=== PATIENT | female | born 1960 | race African-American/Black ===

== ENCOUNTER 2018-05-09 16:52 | Emergency (ER) | payer MEDICAID ==
[~2018-05-09] VITALS: Ht 172.7 cm; Wt 77.1 kg
[~2018-05-09 16:52] MED LIST: ALBUTEROL SULF8.5 GM INH; DULERA 100 MCG/13 GM INH; PRILOSEC40 MG ORAL; QVAR7.3 GM INH
[2018-05-09 17:00] VITALS: BP 144/104
--- NOTE | 2018-05-09 17:00 | NUR ---
ED Nurse Note: pt present at ER c/o chest pain 6/10 radiates to both shoulders and both arms. per pt she has been coughing for a couple of days but pt has coughed during assessment. pt aao x4 and skin intact and cooperative.
--- NOTE | 2018-05-09 17:30 | Emergency Room Report ---
History of Present Illness General Chief Complaint: General Complaint Source: Patient Present Illness HPI 57-year-old female with history of COPD p/w chest pain for 2-3 days. Chest pain started spontaneously.. Localized to left side of chest/ substernal area, no radiation to back or other areas, sharp in nature, gradual in onset, has multiple episodes episodes. Denies any worsened SOB than her normal, says that she has not been wheezing. No fever no chills no coughing.. Denies palpitations , diaphoresis. She said that she has also been nauseous and felt like it was indigestion so she took some Maalox without any relief. This is the first occurrence of chest pain. Denies fever, chills, cough, abd pain. Denies trauma. Patient has never had a stress test. Patient has never had a cardiac catheterization. Allergies: Coded Allergies: EGG (Unverified Allergy, Severe, 06/06/14) PEANUT (Unverified Allergy, Severe, 06/06/14) Patient History Past Medical History: see triage record Past Surgical History: none Pertinent Family History: none Now: No Reviewed Nursing Documentation: PMH: Agreed; PSxH: Agreed Nursing Documentation-PMH Past Medical History: No History, Except For Hx Hypertension: No - ARTHRITIS Hx COPD: Yes Hx Gastrointestinal Problems: Yes - H. PYLORI Review of Systems All Other Systems: negative except mentioned in HPI Physical Exam Vital Signs Date Time Temp Pulse Resp B/P (MAP) Pulse Ox O2 Delivery O2 Flow Rate FiO2 05/09/18 16:57 98.1 78 20 145/92 94 Room Air Sp02 EP Interpretation: reviewed, normal General Appearance: alert, GCS 15, non-toxic, mild distress Head: normocephalic, atraumatic Eyes: bilateral eye normal inspection, bilateral eye PERRL, bilateral eye EOMI ENT: normal ENT inspection, normal pharynx, normal voice, moist mucus membranes Neck: normal inspection, full range of motion, supple Respiratory: normal inspection, lungs clear, normal breath sounds, no respiratory distress, no retraction, no wheezing, speaking full sentences, chest symmetrical Cardiovascular #1: normal inspection, regular rate, rhythm, no edema, normal capillary refill Cardiovascular #2: 2+ radial (R), 2+ radial (L) Gastrointestinal: normal inspection, non tender, soft, non-distended, no guarding Musculoskeletal: normal inspection, back normal, normal range of motion, non- tender Neurologic: normal inspection, alert, oriented x3, responsive, motor strength/ tone normal, sensory intact, normal gait, speech normal Psychiatric: normal inspection, judgement/insight normal, memory normal Skin: normal inspection, normal color, no rash, warm/dry, well hydrated, normal turgor Medical Decision Making Diagnostic Impression: Primary Impression: Chest pain Additional Impressions: UTI (urinary tract infection) COPD exacerbation ER Course 57-year-old female p/w CP DDX: ACS vs. COPD, CHF vs. pneumonia vs. gastritis/GERD vs. pneumothorax PE on differential however at this time there are other more likely diagnoses. She has no risk factors Plan: IV access, obtain labs including troponin, EKG, CXR ASA ER course: Patient was treated with ASA. Patient has remained on a monitor, HD stable, chest pain improved. also given nebs, only minimal wheezing, ceftriaxone given for UTI Disposition: Patient noemí be dc home.. HEART score is 1 dc home with close pcp fu Please note that this Emergency Department Report was dictated using [employer] technology software, occasionally this can lead to erroneous entry secondary to interpretation by the dictation equipment. EKG Diagnostic Results EP Interpretation: Yes Rate: normal Rhythm: NSR ST Segments: T-wave inversion in aVL, T-wave flattening in V2 and V3 ASA given to patient: Yes Rhythm Strip EP Interpretation: Yes Rate: 70 Rhythm: NSR, no PVCs, no ectopy Chest X-ray CXR: Ordered: Yes 1 view Indication: Chest pain EP interpretation: Yes Interpretation: No consolidation, no effusion, no PTX, no acute cardiopulmonary disease Impression: No acute disease Electronically signed by Radha Estevez MD Laboratory Tests Test 05/09/18 17:35 05/09/18 19:57 White Blood Count 7.4 K/UL (4.8-10.8) Red Blood Count 5.00 M/UL (4.20-5.40) Hemoglobin 15.1 G/DL (12.0-16.0) Hematocrit 45.5 % (37.0-47.0) Mean Corpuscular Volume 91 FL (80-99) Mean Corpuscular Hemoglobin 30.2 PG (27.0-31.0) Mean Corpuscular Hemoglobin Concent 33.2 G/DL (32.0-36.0) Red Cell Distribution Width 11.9 % (11.6-14.8) Platelet Count 275 K/UL (150-450) Mean Platelet Volume 6.6 FL (6.5-10.1) Neutrophils (%) (Auto) 54.6 % (45.0-75.0) Lymphocytes (%) (Auto) 31.9 % (20.0-45.0) Monocytes (%) (Auto) 9.2 % (1.0-10.0) Eosinophils (%) (Auto) 2.5 % (0.0-3.0) Basophils (%) (Auto) 1.9 % (0.0-2.0) Urine Color Pale yellow Urine Appearance Clear Urine pH 8 (4.5-8.0) Urine Specific [place] 1.010 (1.005-1.035) Urine Protein Negative (NEGATIVE) Urine Glucose (UA) Negative (NEGATIVE) Urine Ketones Negative (NEGATIVE) Urine Blood Negative (NEGATIVE) Urine Nitrite Negative (NEGATIVE) Urine Bilirubin Negative (NEGATIVE) Urine Urobilinogen Normal MG/DL (0.0-1.0) Urine Leukocyte Esterase 1+ (NEGATIVE) H Urine RBC 0-2 /HPF (0 - 2) Urine WBC 0-2 /HPF (0 - 2) Urine Squamous Epithelial Cells Few /LPF (NONE/OCC) Urine Amorphous Sediment Moderate /LPF (NONE) H Urine Bacteria Moderate /HPF (NONE) H Sodium Level 140 MMOL/L (136-145) Potassium Level 4.1 MMOL/L (3.5-5.1) Chloride Level 103 MMOL/L (98-107) Carbon Dioxide Level 33 MMOL/L (21-32) H Anion Gap 4 mmol/L (5-15) L Blood Urea Nitrogen 10 mg/dL (7-18) Creatinine 1.0 MG/DL (0.55-1.30) Estimate Glomerular Filtration Rate > 60 mL/min (>60) Glucose Level 100 MG/DL (74-106) Calcium Level 9.7 MG/DL (8.5-10.1) Total Bilirubin 0.2 MG/DL (0.2-1.0) Aspartate Amino Transferase (AST) 15 U/L (15-37) Alanine Aminotransferase (ALT) 38 U/L (12-78) Alkaline Phosphatase 110 U/L (46-116) Troponin I 0.000 ng/mL (0.000-0.056) 0.000 ng/mL (0.000-0.056) Pro-B-Type Natriuretic Peptide 8 pg/mL (0-125) Total Protein 8.2 G/DL (6.4-8.2) Albumin 3.8 G/DL (3.4-5.0) Globulin 4.4 g/dL Albumin/Globulin Ratio 0.9 (1.0-2.7) L Last Vital Signs Date Time Temp Pulse Resp B/P (MAP) Pulse Ox O2 Delivery O2 Flow Rate FiO2 05/09/18 16:57 98.1 78 20 145/92 94 Room Air Disposition: HOME, SELF-CARE Condition: Stable Scripts Cephalexin* (KEFLEX*) 500 Mg Capsule 500 MG ORAL EVERY 6 HOURS for 7 Days, #28 CAP Prov: Radha Estevez M.D. 05/09/18 Prednisone* (PREDNISONE*) 20 Mg Tablet 40 MG ORAL DAILY for 5 Days, #10 TAB Prov: Radha Estevez M.D. 05/09/18 Radha Estevez M.D. May 09, 2018 17:30
[2018-05-09] MEDS ORDERED: Ipratropium 0.02% Inh Soln 2.5ml UD HHN ONE (17:45)
[2018-05-09] MEDS ORDERED: Albuterol ud Inhalation HHN ONE (17:45)
--- NOTE | 2018-05-09 17:46 | NUR ---
ED Nurse Note: RN notified that pt wants breathing tx and audiable wheezing. will wait for the order.
[2018-05-09 18:05] LABS: BASOPHILS % (AUTO) 1.9 % (0.0-2.0); EOSINOPHILS % (AUTO) 2.5 % (0.0-3.0); HEMATOCRIT 45.5 % (37.0-47.0); HEMOGLOBIN 15.1 G/DL (12.0-16.0); LYMPHOCYTES % (AUTO) 31.9 % (20.0-45.0); MEAN CORPUSCULAR VOLUME 91 FL (80-99); MONOCYTES % (AUTO) 9.2 % (1.0-10.0); NEUTROPHILS % (AUTO) 54.6 % (45.0-75.0); PLATELET COUNT 275 K/UL (150-450); RED CELL DISTRIBUTION WIDTH 11.9 % (11.6-14.8); WHITE BLOOD COUNT 7.4 K/UL (4.8-10.8)
[2018-05-09 18:06] LABS: APPEARANCE,URINE CLEAR; BILIRUBIN, URINE NEGATIVE (NEGATIVE); COLOR,URINE PALE YELLOW; GLUCOSE, URINE (UA) NEGATIVE (NEGATIVE); KETONES,URINE NEGATIVE (NEGATIVE); LEUKOCYTE ESTERASE ,URINE 1+ (NEGATIVE); NITRITE,URINE NEGATIVE (NEGATIVE); PH,URINE 8 (4.5-8.0); PROTEIN,URINE NEGATIVE (NEGATIVE); UROBILINOGEN,URINE NORMAL MG/DL (0.0-1.0)
[2018-05-09 18:13] LABS: ANION GAP 4 mmol/L (5-15); BLOOD UREA NITROGEN 10 mg/dL (7-18); CALCIUM 9.7 MG/DL (8.5-10.1); CARBON DIOXIDE 33 MMOL/L (21-32); CHLORIDE 103 MMOL/L (98-107); POTASSIUM 4.1 MMOL/L (3.5-5.1); SODIUM 140 MMOL/L (136-145)
[2018-05-09] MEDS ORDERED: Solu-MEDROL 125mg Inj IVP ONE (18:15)
[2018-05-09] MEDS ORDERED: PREDNISONE20 MG ORAL (18:16)
[2018-05-09 18:26] LABS: ALANINE AMINOTRANSFERASE 38 U/L (12-78); ALBUMIN 3.8 G/DL (3.4-5.0); ALBUMIN/GLOBULIN RATIO 0.9 (1.0-2.7); ALKALINE PHOSPHATASE 110 U/L (46-116); ASPARTATE AMINO TRANSFERASE 15 U/L (15-37); BILIRUBIN,TOTAL 0.2 MG/DL (0.2-1.0)
[2018-05-09] MEDS ORDERED: cefTRIAXone 1 GM in NS 55 ML IVPB ONE (18:45)
[2018-05-09] MEDS ORDERED: CEPHALEXIN500 MG ORAL (18:46)
--- NOTE | 2018-05-09 19:30 | NUR ---
ED Nurse Note: Patient resting comfortably with friend at bedside. awaiting redraw on troponin before discharge and conclusion of fluids.
--- NOTE | 2018-05-09 19:50 | NUR ---
ED Nurse Note: IV antibiotics complete, patient ambulated to restroom, with steady gait. Patient awaiting lab results of troponin redraw. Friend at bedside.
[2018-05-09 20:58] VITALS: BP 144/104
--- NOTE | 2018-05-09 20:58 | NUR ---
ED Nurse Note: patient cleared for discharge. Patient verbalized understanding of discharge instruction, IV removed, id band removed. patient departed with all belongings, accompanied by friend.
--- NOTE | 2018-05-10 10:54 | Diagnostic Imaging Report ---
Indication: Chest pain Comparison: 06/06/2014 A single view chest radiograph was obtained. Findings: There is a question of a nodular density at the left lung base injected over the posterior part of the left ninth rib. Further evaluation is recommended to exclude possibility of a pulmonary nodule. Heart size is normal. Aorta is mildly ectatic. IMPRESSION: Suggest repeat x-ray. Suggest PA and lateral view for questionable nodule left lung base versus artifact.
--- NOTE | 2018-05-12 13:06 | Cardiology Report ---
APPROVED REPORT EKG Measurement Heart [id number] Normal sinus rhythm Nonspecific ST and T wave abnormality Abnormal ECG
== END 2018-05-09 20:58 | disposition home or self-care (01) ==
LOC: EMR 17:57
DX: R07.9 Chest pain, unspecified (principal); N39.0 Urinary tract infection, site not specified; J44.1 Chronic obstructive pulmonary disease with (acute) exacerbation; Z91.012 Allergy to eggs; Z91.010 Allergy to peanuts
CPT/HCPCS: 36415; 71045; 80053; 81003; 83880; 84484; 85025; 87086; 93005; 94640; 94664; 96365; 96375; 99284; J0696; J2405; J2930; S0028

== ENCOUNTER 2018-10-13 18:08 | Emergency (ER) | payer MEDICAID ==
[~2018-10-13] VITALS: Ht 172.7 cm; Wt 77.1 kg
[~2018-10-13 18:08] MED LIST changes: +CEPHALEXIN500 MG ORAL; +GUAIFENESIN-CO118 M1 ORAL; +PREDNISONE20 MG ORAL
[2018-10-13 18:25] VITALS: BP 136/89
--- NOTE | 2018-10-13 18:25 | NUR ---
ED Nurse Note: PT FROM HOME CAME IND UE TO SOB AND COPD EXACERBATION X 4 DAYS. PT STATES IT GOT WORSE TODAY AND DENIES SMOKING. NOTED AUDIBLE WHEEZING AND SOB AT REST. AAO X4, AMBULATORY WITH LABORED BREATHING. VSS.
[2018-10-13] MEDS ORDERED: Solu-MEDROL 125mg Inj IVP ONE (18:30)
[2018-10-13] MEDS ORDERED: Ipratropium 0.02% Inh Soln 2.5ml UD HHN ONE (18:30)
--- NOTE | 2018-10-13 18:35 | Emergency Room Report ---
History of Present Illness General Chief Complaint: Dyspnea/Respdistress Source: Patient Present Illness HPI The patient drove herself here. She has had a cough for 3 to 4 days. She has also had wheezing. She denies any significant chest pain. She recently finished a course of steroids about a month ago. She does have a history of asthma and COPD. She has been coughing up some phlegm. She thinks she might have had some fevers but feels more like hot flashes. This is not her worst attack but she has been using her nebulizer "too much". No chest pain, palpitations, nausea, vomiting, diarrhea, dysuria, abdominal pain , depression, visual changes, headache. Patient has a history of glaucoma. Allergies: Coded Allergies: EGG (Unverified Allergy, Severe, 06/06/14) PEANUT (Unverified Allergy, Severe, 06/06/14) Patient History Past Medical History: see triage record Social History: Denies: smoking Social History Narrative From home Last Menstrual Period: menopause Now: No Reviewed Nursing Documentation: PMH: Agreed; PSxH: Agreed Nursing Documentation-PMH Hx Hypertension: No - ARTHRITIS Hx COPD: Yes Hx Gastrointestinal Problems: Yes - H. PYLORI Review of Systems All Other Systems: negative except mentioned in HPI Physical Exam Vital Signs Date Time Temp Pulse Resp B/P (MAP) Pulse Ox O2 Delivery O2 Flow Rate FiO2 10/13/18 18:15 98.2 92 16 120/78 (92) 92 Room Air Sp02 EP Interpretation: reviewed, normal General Appearance: well appearing, no apparent distress, GCS 15 Head: normocephalic Eyes: right eye Scleral Injection; bilateral eye PERRL, bilateral eye EOMI ENT: normal pharynx, moist mucus membranes Neck: supple Respiratory: no respiratory distress, wheezing, expiration, inspiration, other - Increased work of breathing Cardiovascular #1: regular rate, rhythm Cardiovascular #2: 2+ radial (R) Gastrointestinal: normal inspection, normal bowel sounds, non tender, no mass, non-distended Genitourinary: no CVA tenderness Musculoskeletal: back normal, gait/station normal, normal range of motion, no calf tenderness, Paige's Sign negative Neurologic: alert, oriented x3, grossly normal Psychiatric: mood/affect normal Skin: no rash Medical Decision Making Diagnostic Impression: Primary Impression: COPD (chronic obstructive pulmonary disease) Qualified Codes: J44.1 - Chronic obstructive pulmonary disease with (acute) exacerbation Additional Impression: Eosinophilia ER Course Patient presents with dyspnea and possible fevers with wheezing and a cough. Differential includes pneumonia, COPD exacerbation, acute myocardial infarction , pulmonary embolus amongst others. The patient is denying chest pain at this time. Evaluation will be with EKG, chest x-ray and labs. The patient will receive IV Solu-Medrol as well as breathing treatments. She declines pain medicine at this time. EKG sinus rhythm with nonspecific ST-T wave changes rate of 77. Chest x-ray no infiltrate COPD. White count normal with eosinophilia. CMP remarkable Patient improved but still with some minimal expiratory wheezes right base. She insists on going home. I did offer to have her come in for observation and treatment. Patient improved and stable for outpatient observation and treatment. The patient is told that if she is not doing well to return. She was also advised to have follow-up soon early next week with her doctor. Laboratory Tests Test 10/13/18 18:45 10/13/18 19:15 White Blood Count 8.6 K/UL (4.8-10.8) Red Blood Count 5.10 M/UL (4.20-5.40) Hemoglobin 15.4 G/DL (12.0-16.0) Hematocrit 46.4 % (37.0-47.0) Mean Corpuscular Volume 91 FL (80-99) Mean Corpuscular Hemoglobin 30.1 PG (27.0-31.0) Mean Corpuscular Hemoglobin Concent 33.1 G/DL (32.0-36.0) Red Cell Distribution Width 11.4 % (11.6-14.8) L Platelet Count 274 K/UL (150-450) Mean Platelet Volume 6.9 FL (6.5-10.1) Neutrophils (%) (Auto) 55.8 % (45.0-75.0) Lymphocytes (%) (Auto) 28.4 % (20.0-45.0) Monocytes (%) (Auto) 8.2 % (1.0-10.0) Eosinophils (%) (Auto) 5.8 % (0.0-3.0) H Basophils (%) (Auto) 1.8 % (0.0-2.0) Prothrombin Time 10.4 SEC (9.30-11.50) Prothrombin Time INR 1.0 (0.9-1.1) PTT 27 SEC (23-33) Sodium Level 141 MMOL/L (136-145) Potassium Level 3.8 MMOL/L (3.5-5.1) Chloride Level 106 MMOL/L (98-107) Carbon Dioxide Level 26 MMOL/L (21-32) Anion Gap 10 mmol/L (5-15) Blood Urea Nitrogen 11 mg/dL (7-18) Creatinine 1.0 MG/DL (0.55-1.30) Estimate Glomerular Filtration Rate > 60 mL/min (>60) Glucose Level 137 MG/DL (74-106) H Lactic Acid Level 1.40 mmol/L (0.4-2.0) Calcium Level 10.2 MG/DL (8.5-10.1) H Total Bilirubin 0.3 MG/DL (0.2-1.0) Aspartate Amino Transferase (AST) 20 U/L (15-37) Alanine Aminotransferase (ALT) 30 U/L (12-78) Alkaline Phosphatase 109 U/L (46-116) Total Creatine Kinase 215 U/L (26-308) Pro-B-Type Natriuretic Peptide < 5 pg/mL (0-125) Total Protein 8.5 G/DL (6.4-8.2) H Albumin 3.9 G/DL (3.4-5.0) Globulin 4.6 g/dL Albumin/Globulin Ratio 0.8 (1.0-2.7) L Urine Color Pale yellow Urine Appearance Clear Urine pH 5 (4.5-8.0) Urine Specific [place] 1.020 (1.005-1.035) Urine Protein Negative (NEGATIVE) Urine Glucose (UA) Negative (NEGATIVE) Urine Ketones Negative (NEGATIVE) Urine Blood Negative (NEGATIVE) Urine Nitrite Negative (NEGATIVE) Urine Bilirubin Negative (NEGATIVE) Urine Urobilinogen Normal MG/DL (0.0-1.0) Urine Leukocyte Esterase 1+ (NEGATIVE) H Urine RBC 0-2 /HPF (0 - 2) Urine WBC 0-2 /HPF (0 - 2) Urine Squamous Epithelial Cells Occasional /LPF Urine Bacteria None /HPF (NONE) EKG Diagnostic Results Rate: normal Rhythm: NSR ST Segments: no acute changes Rhythm Strip Diag. Results EP Interpretation: yes Rhythm: NSR, no PVC's, no ectopy Chest X-Ray Diagnostic Results Chest X-Ray Diagnostic Results : Chest X-Ray Ordered: Yes # of Views/Limited/Complete: 1 View Indication: Shortness of Breath EP Interpretation: Yes Interpretation: no consolidation, no effusion, no pneumothorax, other - COPD Impression: Other Electronically Signed by: Electronically signed by Paxton Aguirre MD Last Vital Signs Date Time Temp Pulse Resp B/P (MAP) Pulse Ox O2 Delivery O2 Flow Rate FiO2 10/13/18 21:25 98.1 75 16 135/86 100 Room Air 21 Status: improved Disposition: HOME, SELF-CARE Condition: Improved Scripts Promethazine HCl/Codeine (Prometh-Codein 6.25-10 mg/5 ml) 5 Ml Syrup 5 ML PO Q6HR, #60 ML Prov: Paxton Aguirre MD 10/13/18 Albuterol Sulfate* (ALBUTEROL SULFATE HHN*) 2.5 Mg/3 Ml Vial.neb 2.5 MG HHN Q4H PRN for Shortness of Breath, #25 VIAL Prov: Paxton Aguirre MD 10/13/18 Albuterol Sulfate* (ALBUTEROL SULFATE MDI*) 8.5 Gm Hfa.aer.ad 2 PUFF INH Q6H, #1 EA 0 Refills Prov: Paxton Aguirre MD 10/13/18 Prednisone* (PREDNISONE*) 20 Mg Tablet 40 MG ORAL DAILY, #10 TAB Prov: Paxton Aguirre MD 10/13/18 Paxton Aguirre MD Oct 13, 2018 18:35
--- NOTE | 2018-10-13 18:51 | NUR ---
ED Nurse Note: COLLECTED BLOOD THEN SENT.
--- NOTE | 2018-10-13 18:56 | NUR ---
ED Nurse Note: CULTURAL CENTRE MANAGER AT THE BED SIDE FOR CXR.
[2018-10-13 19:04] LABS: BASOPHILS % (AUTO) 1.8 % (0.0-2.0); EOSINOPHILS % (AUTO) 5.8 % (0.0-3.0); HEMATOCRIT 46.4 % (37.0-47.0); HEMOGLOBIN 15.4 G/DL (12.0-16.0); LYMPHOCYTES % (AUTO) 28.4 % (20.0-45.0); MEAN CORPUSCULAR VOLUME 91 FL (80-99); MONOCYTES % (AUTO) 8.2 % (1.0-10.0); NEUTROPHILS % (AUTO) 55.8 % (45.0-75.0); PLATELET COUNT 274 K/UL (150-450); RED CELL DISTRIBUTION WIDTH 11.4 % (11.6-14.8); WHITE BLOOD COUNT 8.6 K/UL (4.8-10.8)
--- NOTE | 2018-10-13 19:05 | NUR ---
HAND-OFF: Report given to PAULA JOHN.
[2018-10-13] MEDS: Albuterol ud Inhalation HHN SCH ×3 (19:16→19:51)
[2018-10-13 19:22] LABS: ANION GAP 10 mmol/L (5-15); BLOOD UREA NITROGEN 11 mg/dL (7-18); CALCIUM 10.2 MG/DL (8.5-10.1); CARBON DIOXIDE 26 MMOL/L (21-32); CHLORIDE 106 MMOL/L (98-107); POTASSIUM 3.8 MMOL/L (3.5-5.1); SODIUM 141 MMOL/L (136-145)
[2018-10-13 19:26] LABS: APPEARANCE,URINE CLEAR; BILIRUBIN, URINE NEGATIVE (NEGATIVE); COLOR,URINE PALE YELLOW; GLUCOSE, URINE (UA) NEGATIVE (NEGATIVE); KETONES,URINE NEGATIVE (NEGATIVE); LEUKOCYTE ESTERASE ,URINE 1+ (NEGATIVE); NITRITE,URINE NEGATIVE (NEGATIVE); PH,URINE 5 (4.5-8.0); PROTEIN,URINE NEGATIVE (NEGATIVE); UROBILINOGEN,URINE NORMAL MG/DL (0.0-1.0)
[2018-10-13 19:37] VITALS: BP 135/86
--- NOTE | 2018-10-13 19:38 | NUR ---
ER Nurse Note: Pt provided urine; sent to lab and awaiting results. Pt is receiving breathing treatments; RT at pt side. O2 >94%. Wheezes heard prior to breathing treatment. Pt no signs of distress. Will continue to montior.
[2018-10-13 19:44] LABS: ALANINE AMINOTRANSFERASE 30 U/L (12-78); ALBUMIN 3.9 G/DL (3.4-5.0); ALBUMIN/GLOBULIN RATIO 0.8 (1.0-2.7); ALKALINE PHOSPHATASE 109 U/L (46-116); ASPARTATE AMINO TRANSFERASE 20 U/L (15-37); BILIRUBIN,TOTAL 0.3 MG/DL (0.2-1.0); CREATINE KINASE 215 U/L (26-308)
--- NOTE | 2018-10-13 19:44 | NUR ---
ER Nurse Note: Pt stable; complained of LT neck and shoulder pain; MD aware. X-ray being taken. All safety measures met; will continue to montior.
[2018-10-13] MEDS ORDERED: PROMETH-CODEIN 65 ML PO (21:17)
[2018-10-13] MEDS ORDERED: PREDNISONE20 MG ORAL (21:17)
[2018-10-13] MEDS ORDERED: ALBUTEROL2.5 MG/3 M HHN (21:17)
[2018-10-13] MEDS ORDERED: ALBUTEROL SULF8.5 GM INH (21:17)
[2018-10-13 21:25] VITALS: BP 135/86
--- NOTE | 2018-10-13 21:25 | NUR ---
ER Nurse Note: Pt seen, treated, medically cleared for discharge by ERMD. Discharge instuctions and prescriptions given with repeat verbalization by pt. Emphasized to follow up with primay care provider; take whole course of medication. All orders completed per ERMD orders. Pt a&ox4, VSS, no signs of distress. ID band removed. IV removed; site clean and bandaged. Pt left with all belongings, left with own transportation.
--- NOTE | 2018-10-14 12:46 | Diagnostic Imaging Report ---
Indication: Shortness of breath Technique: One view of the chest Comparison: 08/25/2018 Findings: Heart size is normal. The aorta is elongated. The lungs and pleural spaces are clear. No significant interim change Impression: No acute process
== END 2018-10-13 21:25 | disposition home or self-care (01) ==
LOC: EMR 19:11
DX: J44.1 Chronic obstructive pulmonary disease with (acute) exacerbation (principal); D72.1 Eosinophilia; Z91.012 Allergy to eggs; Z91.010 Allergy to peanuts; M19.90 Unspecified osteoarthritis, unspecified site
CPT/HCPCS: 36415; 71045; 80053; 81003; 82550; 83605; 83880; 85025; 85610; 85730; 93005; 94640; 96361; 96374; 99284; J2930

== ENCOUNTER 2019-01-31 20:07 | Emergency (ER) | payer MEDICAID ==
[~2019-01-31] VITALS: Ht 172.7 cm; Wt 81.6 kg
[~2019-01-31 20:07] MED LIST changes: +ALBUTEROL2.5 MG/3 M HHN; +PROMETH-CODEIN 65 ML PO
[2019-01-31 20:20] VITALS: BP 130/86
--- NOTE | 2019-01-31 20:20 | NUR ---
ED Nurse Note: Patient walked in to ER c/o SOB, wheezes. AAO x4, VSS at this time, skin ios warm to touch. O2 sat 94% on RA.
[2019-01-31] MEDS: Albuterol ud Inhalation HHN SCH (20:44)
[2019-01-31] MEDS: Ipratropium 0.02% Inh Soln 2.5ml UD HHN SCH (20:44)
[2019-01-31] MEDS ORDERED: ALBUTEROL SULF8.5 GM INH (21:44)
[2019-01-31] MEDS ORDERED: AMOXICILLIN500 MG ORAL (21:44)
[2019-01-31] MEDS ORDERED: ALBUTEROL2.5 MG/3 M HHN (21:44)
[2019-01-31] MEDS ORDERED: PREDNISONE20 MG ORAL (21:44)
--- NOTE | 2019-01-31 21:49 | Emergency Room Report ---
History of Present Illness General Chief Complaint: Dyspnea/Respdistress Source: Patient Present Illness Allergies: Coded Allergies: EGG (Unverified Allergy, Severe, 06/06/14) PEANUT (Unverified Allergy, Severe, 06/06/14) Nursing Documentation-[facility] Past Medical History: No History, Except For Hx Hypertension: No - ARTHRITIS Hx COPD: Yes Hx Gastrointestinal Problems: Yes - H. PYLORI Physical Exam Vital Signs Date Time Temp Pulse Resp B/P (MAP) Pulse Ox O2 Delivery O2 Flow Rate FiO2 01/31/19 20:09 98.2 81 14 130/86 (101) 92 Room Air 01/31/19 20:44 21 Medical Decision Making Diagnostic Impression: Primary Impression: COPD (chronic obstructive pulmonary disease) Last Vital Signs Date Time Temp Pulse Resp B/P (MAP) Pulse Ox O2 Delivery O2 Flow Rate FiO2 01/31/19 20:44 70 18 99 Room Air 21 66 18 97 01/31/19 20:20 98.2 130/86 Status: improved Disposition: HOME, SELF-CARE Condition: Stable Scripts Amoxicillin* (AMOXIL*) 500 Mg Capsule 500 MG ORAL THREE TIMES A DAY, #21 CAP Prov: Nishant Marcano MD 01/31/19 Prednisone* (PREDNISONE*) 20 Mg Tablet 40 MG ORAL DAILY, #10 TAB Prov: Nishant Marcano MD 01/31/19 Albuterol Sulfate* (ALBUTEROL SULFATE HHN*) 2.5 Mg/3 Ml Vial.neb 2.5 MG HHN Q4H PRN for Shortness of Breath, #25 VIAL Prov: Nishant Marcano MD 01/31/19 Albuterol Sulfate* (ALBUTEROL SULFATE MDI*) 8.5 Gm Hfa.aer.ad 2 PUFF INH Q6H, #1 EA 0 Refills Prov: Nishant Marcano MD 01/31/19 Referrals: NOT CHOSEN IPA/,REFERRING (PCP) Patient Instructions: Chronic Obstructive Pulmonary Disease Exacerbation Nishant Marcano MD Jan 31, 2019 21:49
[2019-01-31 21:59] VITALS: BP 130/86
--- NOTE | 2019-01-31 22:00 | NUR ---
ED Nurse Note: Pt cleared by health care Provider for discharge. DC instructions/prescription was given and explained to pt and verbalized understanding of teachings. All medical deviecs such as ID band removed. Pt is AAO x4, ambulatory and left with all personal belongings.
--- NOTE | 2019-02-03 16:26 | Emergency Room Report ---
History of Present Illness General Chief Complaint: Dyspnea/Respdistress Source: Patient Present Illness HPI 58-year-old female presents ED for evaluation. Complaining of shortness of breath and wheezing x1 week. History of COPD. States she ran out of her inhaler. States she has had a cough which is dry. Denies fevers or chills. Denies chest pain. No other aggravating relieving factors. Denies any other associated symptoms Allergies: Coded Allergies: EGG (Unverified Allergy, Severe, 06/06/14) PEANUT (Unverified Allergy, Severe, 06/06/14) Patient History Past Medical History: COPD, ulcer, GERD Past Surgical History: none Pertinent Family History: none Social History: Denies: smoking, alcohol use, drug use Now: No Immunizations: UTD Reviewed Nursing Documentation: PMH: Agreed; PSxH: Agreed Nursing Documentation-PMH Past Medical History: No History, Except For Hx Hypertension: No - ARTHRITIS Hx COPD: Yes Hx Gastrointestinal Problems: Yes - H. PYLORI Review of Systems All Other Systems: negative except mentioned in HPI Physical Exam Vital Signs Date Time Temp Pulse Resp B/P (MAP) Pulse Ox O2 Delivery O2 Flow Rate FiO2 01/31/19 20:09 98.2 81 14 130/86 (101) 92 Room Air 01/31/19 20:44 21 Sp02 EP Interpretation: reviewed, normal General Appearance: no apparent distress, alert, GCS 15, non-toxic Head: normocephalic, atraumatic Eyes: bilateral eye normal inspection, bilateral eye PERRL ENT: hearing grossly normal, normal pharynx, no angioedema, normal voice Neck: full range of motion, supple/symm/no masses Respiratory: chest non-tender, decreased breath sounds, speaking full sentences , wheezing Cardiovascular #1: regular rate, rhythm, no edema Cardiovascular #2: 2+ carotid (R), 2+ carotid (L), 2+ radial (R), 2+ radial (L) , 2+ dorsalis pedis (R), 2+ dorsalis pedis (L) Gastrointestinal: normal bowel sounds, non tender, soft, non-distended, no guarding, no rebound Rectal: deferred Genitourinary: normal inspection, no CVA tenderness Musculoskeletal: back normal, gait/station normal, normal range of motion, non- tender Neurologic: alert, oriented x3, responsive, motor strength/tone normal, sensory intact, speech normal Psychiatric: judgement/insight normal, memory normal, mood/affect normal, no suicidal/homicidal ideation Reflexes: 3+ bicep (R), 3+ bicep (L), 3+ tricep (R), 3+ tricep (L), 3+ knee (R) , 3+ knee (L) Lymphatic: no adenopathy Medical Decision Making Diagnostic Impression: Primary Impression: COPD (chronic obstructive pulmonary disease) Qualified Codes: J44.9 - Chronic obstructive pulmonary disease, unspecified ER Course Hospital Course 58-year-old female presents to ED complaining of cough, wheezing Differential diagnoses include: URI, bronchitis, asthma/COPD, pneumonia Clinical course Patient placed on stretcher. After initial history, physical exam reveals a middle aged female in no acute distress. Bilateral TM unremarkable. No pharyngeal erythema. No tonsillar exudates. No lymphadenopathy. Mild wheezing noted on exam, no signs of respiratory distress or retractions. Patient given Prednisone and albuterol treatment in ED with symptoms improved. discussed findings with patient. Given history of COPD. Will discharge on antibiotics. Safe for discharge for close outpatient follow-up. States she has a PMD Diagnosis - COPD exacerbation Stable and discharged home with prescriptions for albuterol, prednisone, amoxicillin. Instructed to followup with PMD. Return to ED if symptoms recur or worsen Last Vital Signs Date Time Temp Pulse Resp B/P (MAP) Pulse Ox O2 Delivery O2 Flow Rate FiO2 01/31/19 21:59 98.2 18 130/86 97 Room Air 21 01/31/19 20:44 70 66 Status: improved Disposition: HOME, SELF-CARE Condition: Stable Scripts Amoxicillin* (AMOXIL*) 500 Mg Capsule 500 MG ORAL THREE TIMES A DAY, #21 CAP Prov: Nishant Marcano MD 01/31/19 Prednisone* (PREDNISONE*) 20 Mg Tablet 40 MG ORAL DAILY, #10 TAB Prov: Nishant Marcano MD 01/31/19 Albuterol Sulfate* (ALBUTEROL SULFATE HHN*) 2.5 Mg/3 Ml Vial.neb 2.5 MG HHN Q4H PRN for Shortness of Breath, #25 VIAL Prov: Nishant Marcano MD 01/31/19 Albuterol Sulfate* (ALBUTEROL SULFATE MDI*) 8.5 Gm Hfa.aer.ad 2 PUFF INH Q6H, #1 EA 0 Refills Prov: Nishant Marcano MD 01/31/19 Referrals: NOT CHOSEN IPA/,REFERRING (PCP) Patient Instructions: Chronic Obstructive Pulmonary Disease Exacerbation Nishant Marcano MD Feb 03, 2019 16:26
== END 2019-01-31 22:00 | disposition home or self-care (01) ==
LOC: EMR 21:08
DX: J44.9 Chronic obstructive pulmonary disease, unspecified (principal); M19.90 Unspecified osteoarthritis, unspecified site; Z91.012 Allergy to eggs; Z91.010 Allergy to peanuts; K21.9 Gastro-esophageal reflux disease without esophagitis
CPT/HCPCS: 94640; 94664; J7512; Z7502; 99282

== ENCOUNTER 2020-02-19 08:05 | Emergency (ER) | payer MEDICAID ==
[~2020-02-19] VITALS: Ht 172.7 cm; Wt 79.4 kg
[~2020-02-19 08:05] MED LIST changes: +AMOXICILLIN500 MG ORAL
[2020-02-19 08:35] VITALS: BP 123/76
--- NOTE | 2020-02-19 08:35 | NUR ---
ED Nurse Note: Pt walked into ED for white tongue, general weakness, and burning sensations in nose. Pt is alert and orientedx4, ambulatory. She denies CP or nause or vomiting. She states she was tested 1 week ago and was COVID -.
[2020-02-19] MEDS ORDERED: NYSTATIN100000 UN1 ORAL (08:38)
--- NOTE | 2020-02-19 08:39 | Emergency Room Report ---
History of Present Illness General Chief Complaint: Flu Like Symptoms Present Illness HPI Disclaimer: Please note that this report is being documented using [employer] technology. This can lead to erroneous entry secondary to incorrect interpretation by the dictating instrument. HPI: 59-year-old female with history of COPD presents for evaluation of tongue lesion. Patient reported waking up this morning and somewhat yesterday with a white film on her tongue. Reports dryness. Denies pain. Was able to scrape this lesion off while brushing her teeth. Denied bleeding, ulceration, swelling of the tongue or throat. Denies difficulty breathing. Has been using albuterol nebulizer treatments and inhaler. Denies change in her chronic cough. No fever, no chills, no URI symptoms. Recently tested negative for COVID-19. 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 PYLORI Review of Systems All Other Systems: negative except mentioned in HPI Physical Exam Vital Signs Date Time Temp Pulse Resp B/P (MAP) Pulse Ox O2 Delivery O2 Flow Rate FiO2 02/19/20 08:12 98.1 88 20 125/79 (94) 93 Room Air General: Awake and alert, no acute distress HEENT: NC/AT. EOMI. PERRLA. Uvula midline. Nonobstructing tonsils. No pharyngeal edema or erythema. Scant white film over the tongue that scrapes off easily without underlying ulceration, bleeding, edema. Resp: Normal work of breathing Skin: Intact. No abrasions, laceration or rash over the exposed skin MSK: Normal tone and bulk. Moving all extremities. No obvious deformity. Neuro: Awake and alert. Mentating appropriately Medical Decision Making Diagnostic Impression: Primary Impression: Oral thrush ER Course Is a 59-year-old female presenting for evaluation of film on her tongue. Most consistent with oral thrush in the setting of chronic inhaler use. No evidence of mass or hairy cell leukoplakia. Will try nystatin mouthwash and patient's directed to return with new or worsening symptoms. No other clinical concerns at this time. Stable for outpatient follow-up. She understands and agrees with this treatment plan. Last Vital Signs Date Time Temp Pulse Resp B/P (MAP) Pulse Ox O2 Delivery O2 Flow Rate FiO2 02/19/20 08:12 98.1 88 20 125/79 (94) 93 Room Air Disposition: HOME, SELF-CARE Condition: Stable Scripts Nystatin* (NYSTATIN*) 100,000 Unit/1 Ml Oral.susp 5 ML ORAL FOUR TIMES A DAY for 5 Days, #50 ML Swish in the mouth and retain for as long as possible (several minutes) before swallowing Prov: Irvin Powers MD 02/19/20 Referrals: [facility] Patient Instructions: Thrush, Adult Additional Instructions: Please follow-up with your primary care doctor in the next 1 to 3 days to discuss this emergency department visit and for reevaluation. If you have any new or worsening symptoms please return to the emergency department for reevaluation. Please note that this report is being documented using [employer] technology. This can lead to erroneous entry secondary to incorrect interpretation by the dictating instrument. Irvin Powers MD Feb 19, 2020 08:38
--- NOTE | 2020-02-19 08:52 | NUR ---
ER DISCHARGE NOTE: Patient is cleared to be discharged per ERMD, pt is aox4, on room air, with stable vital signs. pt was given dc and prescription instructions, pt was able to verbalize understanding, pt id band removed. pt is able to ambulate with steady gait. pt took all belongings. Pt insrtucted on thrush and nystatin.
== END 2020-02-19 08:53 | disposition home or self-care (01) ==
LOC: EMR 08:25
DX: B37.0 Candidal stomatitis (principal); J44.9 Chronic obstructive pulmonary disease, unspecified; Z91.012 Allergy to eggs; Z91.010 Allergy to peanuts
CPT/HCPCS: 99282

== ENCOUNTER 2020-02-24 09:20 | Emergency (ER) | payer MEDICAID ==
[~2020-02-24] VITALS: Ht 172.7 cm; Wt 79.4 kg
[~2020-02-24 09:20] MED LIST changes: +NYSTATIN100000 UN1 ORAL
[2020-02-24 09:35] VITALS: BP 122/85
--- NOTE | 2020-02-24 09:35 | NUR ---
ED Nurse Note: Patient from home and walked in due to generalized weakness with headache and loss of appetite. Pt also has been having diarrhea x 10 days. No reports of fever or coughing. Pt is AAO x4, ambulates with steady gait with non labored breathing.
[2020-02-24] MEDS ORDERED: cefTRIAXone 1 GM in NS 55 ML IVPB ONE (09:45)
[2020-02-24] MEDS ORDERED: dexAMETHasone 10mg/ml Inj IV ONE (10:00)
--- NOTE | 2020-02-24 10:01 | NUR ---
ED Nurse Note: Collected blood and urine then sent.
--- NOTE | 2020-02-24 10:26 | Emergency Room Report ---
History of Present Illness General Chief Complaint: Generalized Weakness Source: Patient Present Illness HPI 59-year-old female with past medical history of COPD presents with generalized weakness. She endorses abdominal discomfort, nausea, vomiting, diarrhea, myalgias x 7 days. Is also complaining of smelly urine Also endorses increasing dry cough similar to her COPD exacerbations. She was seen recently and diagnosed with thrush for which she took nystatin. It is doing much better. She denies chest pain, shortness of breath, headache, rash, hemoptysis, fevers, chills, or other symptoms. The patient's symptoms were gradual onset, severity was moderate, duration since 7 days Quality: Generally weak Past medical history: COPD Past surgical history: Denies Smoking: Denies Alcohol use: Denies Drug use: Denies Review of systems: CONST: No fevers positive chills, No night sweats PULMONARY: Positive dry cough cough, No shortness of breath CARDIAC: No chest pain, No palpitations GI: ++ vomiting, ++ diarrhea , No melena_or_BRBPR : No dysuria, No hematuria, No discharge NEURO: No new_focal_weakness_or_numbness, No confusion, No vision changes 14 point Review of Systems is otherwise negative except per HPI Physical Exam: GENERAL: Awake_alert_ nontoxic, no acute distress Spo2 91% on RA -normal EYES: Extraocular muscles are intact. Conjunctivae clear. Lids without swelling ENT: External nose and ear normal_in_appearance. Oropharynx clear. Head_atraumatic, Moist_oral_mucosa Resolved oral thrush. NECK: No JVD. No meningismus. No thyromegaly. Supple. Trachea midline RESP: Normal respiratory effort. Symmetric rise. No stridor. Clear_to_auscultation_No_rales_No_wheezes Speaks in full and complete sentences. CARDIAC: Regular rate and regular rhytm. No_significant pedal edema. ABDOMEN: Soft. Nondistended. Nontender_No_rebound_or_guarding. Negative Ruiz's. Negative Rovsing's. Negative obturator. No CVA tenderness to palpation. No palpable abdominal mass. MSK: Normal muscle tone, without rigidity. Extremities without asymmetric d eformity or swelling. SKIN: Warm and dry. No visible cyanosis or pallor NEUROLOGIC: Alert, oriented x3. Motor_and_sensation_grossly_intact. No truncal ataxia. Gait_normal Psych: Normal mood and affect, normal judgment and insight - COORDINATION OF CARE Case was discussed with: Patient Any labs and imaging that were ordered were interpreted as part of the medical decision making: Medical Decision Making/Plan: Differential diagnosis includes cholecystitis, choledocholithiasis, hepatitis, small bowel obstruction, volvulus, AAA, pancreatitis, atypical appendicitis, gastroparesis, gastritis, peptic ulcer disease, among others. Patient is well appearing with stable vital signs. Abdominal exam is non peritoneal with no guarding or rebound. Labs show mild dehydration. CBC is mildly concentrated. CRP is mildly elevated. Suspect viral etiology for diarrhea. Abdominal examination is benign and without significant CVA tenderness to palpation. Urinalysis is negative. EKG shows normal sinus rhythm. No ischemia. Non specific lateral lead ST changes are not evolving. Troponin was negative x2. Doubt anginal equivalent CT scan of the abdomen and pelvis was ordered given her initial complaint of abdominal pain, however patient declines. Risks, benefits were explained. Patient was offered admission but declined stating she feels much better and can follow up with her PMD. Patient was able to tolerate p.o. upon discharge. Will treat with Levaquin secondary to subjective complaint of increasing cough. The patient denies any bloody stool and has no pain out of proportion to exam, and no significant risk factors for mesenteric ischemia such as atrial fibrillation or severe PAD/PVD (peripheral arterial / vascular disease), thus definitive workup to rule out mesenteric ischemia was not pursued. Patient is afebrile, without any significant tenderness in the RUQ, and a negative Breese sign. The patients presentation does not appear to be consistent with acute cholecystitis and thus definitive imaging to rule it out was not pursued. The patient has normal dorsalis pedis pulses, no radiation of pain to the back, and no pulsatile mass felt on exam. The patients profile was overall low risk for AAA and definitive workup was not pursued. The patients symptoms are not consistent with ACS (acute coronary syndrome), symptoms are not exertional, EKG without obvious ischemic change. Pertinent results reviewed with the patient. I educated the patient on the current treatment plan including the risks, benefits, and alternatives. I also discussed the extent and limitations of the current evaluation. The patient expressed understanding and agreement with plan. I recommended PMD follow-up within 1-2 days. Also advised that the patient return to the Emergency Department as soon as possible if they experience any new, persistent, or worsening symptoms. Allergies: Coded Allergies: EGG (Unverified Allergy, Severe, 06/06/14) PEANUT (Unverified Allergy, Severe, 06/06/14) COVID-19 Screening Contact w/high risk pt: No Experienced COVID-19 symptoms?: No COVID-19 Testing performed RUBBER PROCESS HAND: No Nursing Documentation-PMH Past Medical History: No History, Except For Hx Hypertension: No - ARTHRITIS Hx COPD: Yes Hx Gastrointestinal Problems: Yes - H. PYLORI Physical Exam Vital Signs Date Time Temp Pulse Resp B/P (MAP) Pulse Ox O2 Delivery O2 Flow Rate FiO2 02/24/20 09:25 98.1 93 17 117/83 (94) 91 Room Air Sp02 EP Interpretation: reviewed, normal Medical Decision Making Diagnostic Impression: Primary Impression: Nausea and vomiting Additional Impressions: Dehydration Diarrhea COPD exacerbation EKG Diagnostic Results Troponin ordered: Yes When was troponin ordered?: Feb 24, 2020 EKG Time: 10:24 Rate: normal Rhythm: NSR PA Scribe Text 12-lead EKG (interpreted by me) Time: 1001 Indication: Rhythm analysis Tracing visualized and Interpreted by me. Rhythm: Normal sinus rhythm Rate: 82 bpm QTc: 462 Morphology: No_significant_ST_elevations_or_depressions, No STEMI Impression: Normal_sinus_rhythm_without_significant_abnormality Rhythm Strip Diag. Results Rhythm Strip Time: 10:25 EP Interpretation: yes Rate: 87 Rhythm: NSR, no PVC's, no ectopy Chest X-Ray Diagnostic Results Chest X-Ray Diagnostic Results : PA Scribe Text Chest X-Ray: Views: 1 view(s) Indication: Generalized weakness Findings: Normal heart size. Mediastinum normal. No infiltrate. Impression: Hyperinflated lungs The X-ray(s) were independently viewed and interpreted contemporaneously Electronically signed by , Kathy Moss DO Reevaluation Time: 10:26 Last Vital Signs Date Time Temp Pulse Resp B/P (MAP) Pulse Ox O2 Delivery O2 Flow Rate FiO2 02/24/20 09:35 93 17 Room Air 02/24/20 09:25 98.1 117/83 (94) 91 Status: improved Disposition: HOME, SELF-CARE Admit Decision Time: 13:24 Condition: Stable Scripts Ondansetron Odt* (ZOFRAN ODT*) 4 Mg Tab.rapdis 4 MG BC EVERY 8 HOURS, #10 TAB 0 Refills Prov: Kathy Moss D.O. 02/24/20 Prednisone (Prednisone) 20 Mg Tablet 20 MG PO BID for 5 Days, #10 TAB Prov: Kathy Moss D.O. 02/24/20 Levofloxacin* (LEVOFLOXACIN*) 750 Mg Tablet 750 MG ORAL DAILY for 5 Days, #5 TAB Prov: Kathy Moss D.O. 02/24/20 Referrals: [facility]ERR[facility] (PCP) Additional Instructions: Instructions for patient/java sql developer: Follow up with your physician in 1-2 days. Follow-up with your doctor sooner if your condition requires a more timely clinical reevaluation. Return to the emergency department immediately if you feel that your condition is worsening or if you have any new or concerning symptoms. Review your discharge instructions and take any prescriptions given as instructed. [facility] PROVIDES FREE OR LOW-COST HEALTH SERVICES TO PEOPLE WHO CAN SHOW PROOF THAT THEY LIVE IN [facility]. TO FIND MORE CLINICS PARTNERED WITH THE [facility] TO PROVIDE SERVICE, PLEASE CALL . Kathy Moss D.O. Feb 24, 2020 10:26
--- NOTE | 2020-02-24 10:32 | NUR ---
ED Nurse Note: maintenance mechanic technician at the bed side for xray.
[2020-02-24 10:39] LABS: BASOPHILS % (AUTO) 0.5 % (0.0-2.0); HEMATOCRIT 49.8 % (37.0-47.0); HEMOGLOBIN 16.1 G/DL (12.0-16.0); MEAN CORPUSCULAR VOLUME 94 FL (80-99); MONOCYTES % (AUTO) 9.2 % (1.0-10.0); NEUTROPHILS % (AUTO) 77.3 % (45.0-75.0); PLATELET COUNT 205 K/UL (150-450); RED BLOOD COUNT 5.31 M/UL (4.20-5.40); RED CELL DISTRIBUTION WIDTH 12.8 % (11.6-14.8); WHITE BLOOD COUNT 8.5 K/UL (4.8-10.8)
[2020-02-24 10:43] LABS: APPEARANCE,URINE CLEAR; BILIRUBIN, URINE NEGATIVE (NEGATIVE); GLUCOSE, URINE (UA) NEGATIVE (NEGATIVE); KETONES,URINE 1+ (NEGATIVE); LEUKOCYTE ESTERASE ,URINE 1+ (NEGATIVE); NITRITE,URINE NEGATIVE (NEGATIVE); PH,URINE 6 (4.5-8.0); PROTEIN,URINE 2+ (NEGATIVE); UROBILINOGEN,URINE NORMAL MG/DL (0.0-1.0)
[2020-02-24 10:46] LABS: ANION GAP 7 mmol/L (5-15); BLOOD UREA NITROGEN 8 mg/dL (7-18); CALCIUM 8.9 MG/DL (8.5-10.1); CARBON DIOXIDE 29 MMOL/L (21-32); CHLORIDE 98 MMOL/L (98-107); CREATININE 0.8 MG/DL (0.55-1.30); POTASSIUM 3.7 MMOL/L (3.5-5.1); SODIUM 134 MMOL/L (136-145)
[2020-02-24 10:56] LABS: ALANINE AMINOTRANSFERASE 29 U/L (12-78); ALBUMIN 3.2 G/DL (3.4-5.0); ALBUMIN/GLOBULIN RATIO 0.6 (1.0-2.7); ALKALINE PHOSPHATASE 103 U/L (46-116); ASPARTATE AMINO TRANSFERASE 24 U/L (15-37); BILIRUBIN,TOTAL 0.3 MG/DL (0.2-1.0); CREATINE KINASE 65 U/L (26-308)
[2020-02-24 11:01] LABS: COLOR,URINE YELLOW
[2020-02-24 11:43] VITALS: BP 116/68
--- NOTE | 2020-02-24 12:07 | NUR ---
repeat troponin draen waiting for result
[2020-02-24] MEDS ORDERED: ONDANSETRON ODT4 MG BC (12:14)
[2020-02-24] MEDS ORDERED: PREDNISONE20 M1 PO (12:14)
[2020-02-24] MEDS ORDERED: LEVOFLOXACIN750 MG ORAL (12:14)
[2020-02-24 13:21] VITALS: BP 122/76
--- NOTE | 2020-02-24 13:21 | NUR ---
ER DISCHARGE NOTE: Patient is cleared to be discharged per ERMD, pt is aox4, on room air, with stable vital signs. pt was given dc and prescription instructions, pt was able to verbalize understanding, pt id band and iv site removed without complications. pt is able to ambulate with steady gait. pt took all belongings.
--- NOTE | 2020-02-24 14:54 | Diagnostic Imaging Report ---
Indication: Pain and weakness Technique: One view of the chest Comparison: 10/13/2018 Findings: No acute infiltrates, effusions, or congestion. Tortuous calcified aorta. Normal heart size. Upper mediastinum unremarkable. No significant change Impression: No acute process.
--- NOTE | 2020-02-25 12:57 | Cardiology Report ---
APPROVED REPORT EKG Measurement Heart [id number] <Conclusion> Normal sinus rhythm Nonspecific T wave abnormality Abnormal ECG
--- NOTE | 2020-02-25 12:59 | Cardiology Report ---
APPROVED REPORT EKG Measurement Heart [id number] RI [id number] <Conclusion> Normal sinus rhythm Possible Left atrial enlargement Nonspecific T wave abnormality Abnormal ECG
== END 2020-02-24 13:21 | disposition home or self-care (01) ==
LOC: EMR 10:02
DX: R11.2 Nausea with vomiting, unspecified (principal); E86.0 Dehydration; R19.7 Diarrhea, unspecified; J44.1 Chronic obstructive pulmonary disease with (acute) exacerbation; M19.90 Unspecified osteoarthritis, unspecified site; Z91.012 Allergy to eggs; Z91.010 Allergy to peanuts
CPT/HCPCS: 36415; 71045; 80053; 81003; 82550; 83690; 83880; 84484; 85025; 86140; 93005; 96365; 96375; J0696; J7030; Z7502; 99284